=== PATIENT | male | born 1960 | race Caucasian/White ===

== ENCOUNTER 2016-12-24 09:11 | Day surgery (SDC) | payer OTHER ==
[~2016-12-24] VITALS: Ht 165.1 cm; Wt 74.3 kg
[2016-12-24] MEDS ORDERED: MULTIVITAMIN (09:41)
[2016-12-24 09:46] VITALS: Ht 165.1 cm; Wt 74.3 kg
[2016-12-24 10:04] VITALS: BP 118/75; PULSE 62; RESP 26
[2016-12-24] MEDS ORDERED: MIDAZOLAM 1 MG/ML 2 ML INJ ONE ×2 (10:38)
[2016-12-24] MEDS ORDERED: FENTAnyl 50 MCG/ML VIAL ONE (10:39)
[2016-12-24 10:58] VITALS: BP 105/71; PULSE 56; RESP 20
--- NOTE | 2016-12-27 17:49 | GILP ---
DATE OF PROCEDURE: 12/24/2016 PROCEDURE PERFORMED: Colonoscopy and polypectomy. SURGEON: Lavern Peterson MD PREOPERATIVE DIAGNOSIS: Screening colonoscopy. POSTOPERATIVE DIAGNOSIS: Colonoscopy all the way to the cecum. FINDINGS: Flat polyp from the cecum was removed using the snare and electrocautery. Internal hemorrhoids. INDICATION FOR THE PROCEDURE: The patient is a 56-year-old male patient who was scheduled for screening colonoscopy. The procedure and possible complications were well explained to the patient. The patient understood and consented to the procedure. DESCRIPTION OF PROCEDURE: Under the influence of fentanyl and Versed, the colonoscope was carefully introduced in the rectum, and under direct vision, it was advanced all the way to cecum. FINDINGS: The patient had a flat polyp in the cecum, and it was removed using the snare and electrocautery. He had internal hemorrhoids. He tolerated the procedure very well. There were no complications from the procedure. At the end of procedure he was awake with stable vital signs and he was discharged to the care of his family. IMPRESSION: Please see postop diagnoses. PLAN: Await histopathology report. Next screening colonoscopy in 5 years. Dictated By: MD PRASANNA Loomis/demond/bjc /Document#: [id number]
== END 2016-12-24 16:18 | disposition home or self-care (01) ==
LOC: GIL 09:11
PROVIDERS: ATTEND Internal Medicine Gastroenterology
DX: Z12.11 Encounter for screening for malignant neoplasm of colon (principal); D12.0 Benign neoplasm of cecum; K64.8 Other hemorrhoids
CPT/HCPCS: 45385; 88305; J2250; J3010; Z7610